=== PATIENT | male | born 1970 | race Two or more races ===

== ENCOUNTER 2020-04-30 12:53 | Inpatient (IN) | payer OTHER ==
[2020-04-30 15:07] VITALS: BMI 22.3
[2020-05-01] MEDS ORDERED: guaiFENesin 200 MG/10 ML 10 ML UNIT-DOSE CUPS PO PRN (00:16)
[2020-05-01] MEDS ORDERED: P-EPHED 60MG/TRIPROLIDI 2.5MG TABLET PO PRN (00:16)
[2020-05-01] MEDS ORDERED: NICOTINE POLACRILEX 2 MG GUM BC PRN (00:16)
[2020-05-01] MEDS ORDERED: MAG HYDROX/AL HYDROX/SIMETH 30 ML UNIT-DOSE CUP PO PRN (00:16)
[2020-05-01] MEDS ORDERED: MAGNESIUM HYDROX 2400MG/30ML ORAL SUSPENSION 30 ML CUP PO PRN (00:16)
[2020-05-01] MEDS ORDERED: IBUPROFEN 400 MG TABLET (FP) PO PRN (00:16)
[2020-05-01] MEDS ORDERED: MAGNESIUM CITRATE 300 ML BOTTLE PO PRN (00:16)
[2020-05-01] MEDS ORDERED: LOPERAMIDE HCL 2 MG CAPSULE PO PRN (00:16)
[2020-05-01] MEDS ORDERED: ACETAMINOPHEN 325 MG TABLET (FP) PO PRN (00:16)
[2020-05-01] MEDS ORDERED: TUBERCULIN PPD 5 TU/0.1ML VIAL ID ONE (06:37)
[2020-05-01] MEDS ORDERED: PT OWN MED DRAWER 7, Y5N ONE (07:50)
[2020-05-01] MEDS: NICOTINE 7 MG/24 HOURS TOPICAL PATCH TD SCH (10:40)
[2020-05-01] MEDS: PRENATAL VITAMINS W/ FOLIC ACID TABLET (FP) PO SCH (10:40)
[2020-05-01] MEDS: NICOTINE 21 MG/24 HOURS TOPICAL PATCH TD SCH (10:40)
[2020-05-01 10:51] LABS: HEMATOCRIT 38.4 % (35.4-49); HEMOGLOBIN 12.8 GM/dL (11.7-16.9); MCH 30.3 pg (25.7-33.7); MCHC 33.3 g/dl (32.0-35.9); MEAN PLT VOLUME 8.6 fl (7.5-11.1); PLATELET COUNT 237 K/MM3 (134-434); RBC 4.22 M/mm3 (4.00-5.60); RDW 14.1 % (11.9-15.9); WHITE BLOOD COUNT 5.4 K/mm3 (4.0-10.0)
[2020-05-01 11:00] LABS: ALBUMIN 3.2 g/dl (3.4-5.0); BLOOD UREA NITROGEN 18.8 mg/dL (7-18); CALCIUM 8.8 mg/dL (8.5-10.1)
[2020-05-01 11:04] LABS: BILIRUBIN,TOTAL 1.1 mg/dL (0.2-1); CREATININE 1.1 mg/dL (0.55-1.3)
[2020-05-01 11:05] LABS: TOT PROT 6.3 g/dl (6.4-8.2)
[2020-05-01 11:07] LABS: POTASSIUM 4.1 mmol/L (3.5-5.1)
[2020-05-01] MEDS ORDERED: THIAMINE HCL 100 MG TABLET (FP) PO SCH (22:00)
[2020-05-01] MEDS ORDERED: MELATONIN 5 MG TABLETS PO SCH (22:00)
[2020-05-02 07:07] VITALS: BP 102/63; PULSE 64; TEMP 97.3
[2020-05-02] MEDS: PRENATAL VITAMINS W/ FOLIC ACID TABLET (FP) PO SCH (10:45)
[2020-05-02] MEDS: NICOTINE 21 MG/24 HOURS TOPICAL PATCH TD SCH (10:45)
[2020-05-02] MEDS: NICOTINE 7 MG/24 HOURS TOPICAL PATCH TD SCH (10:45)
[2020-05-02 14:51] LABS: PH,URINE 6.5 (5.0-8.0); URINE APPEARANCE CLEAR; URINE BILIRUBIN NEGATIVE (NEGATIVE); URINE COLOR YELLOW; URINE GLUCOSE (UA) NEGATIVE (NEGATIVE); URINE KETONE NEGATIVE (NEGATIVE); URINE LEUK ESTERASE NEGATIVE (NEGATIVE); URINE NITRITE NEGATIVE (NEGATIVE); URINE PROTEIN NEGATIVE (NEGATIVE); URINE UROBILINOGEN 0.2 mg/dL (0.2-1.0)
== END 2020-05-02 11:15 | disposition left against medical advice (07) | DRG 770 ==
LOC: YASAS 12:53 → Y3E 05-01 00:26
PROVIDERS: ADMIT Allergy & Immunology; ATTEND Allergy & Immunology
PROC: HZ42ZZZ Group Counseling for Substance Abuse Treatment, Cognitive-Behavioral (ICD-10-PCS; principal; 2020-05-01)
DX: F10.20 Alcohol dependence, uncomplicated (principal); F14.20 Cocaine dependence, uncomplicated; F17.210 Nicotine dependence, cigarettes, uncomplicated; K52.89 Other specified noninfective gastroenteritis and colitis
CPT/HCPCS: 36415; 80053; 81003; 85027; 86780; 93005; 93010; C9803; U0003

== ENCOUNTER 2020-06-02 09:49 | Inpatient (IN) | payer OTHER ==
[2020-06-02 11:39] VITALS: BMI 22.8
[2020-06-02] MEDS ORDERED: ACETAMINOPHEN 325 MG TABLET (FP) PO PRN ×2 (13:34)
[2020-06-02] MEDS ORDERED: BISMUTH SUBSALICYLATE 262 MG/15 ML BTL PO PRN (13:34)
[2020-06-02] MEDS ORDERED: IBUPROFEN 400 MG TABLET (FP) PO PRN (13:34)
[2020-06-02] MEDS ORDERED: METHOCARBAMOL 500 MG TABLET PO PRN (13:34)
[2020-06-02] MEDS ORDERED: MAGNESIUM CITRATE 300 ML BOTTLE PO PRN (13:34)
[2020-06-02] MEDS ORDERED: MAGNESIUM HYDROX 2400MG/30ML ORAL SUSPENSION 30 ML CUP PO PRN (13:34)
[2020-06-02] MEDS ORDERED: ONDANSETRON *ODT* 4 MG TABLET SL PRN (13:34)
[2020-06-02] MEDS ORDERED: chlordiazePOXIDE HCL 25 MG CAPSULE PO PRN (13:34)
[2020-06-02] MEDS ORDERED: MENTHOL/PHENOL 1 EACH UD MM PRN (13:34)
[2020-06-02] MEDS ORDERED: DICYCLOMINE HCL 10 MG CAPSULE PO PRN (13:34)
[2020-06-02] MEDS ORDERED: MAG HYDROX/AL HYDROX/SIMETH 30 ML UNIT-DOSE CUP PO PRN (13:34)
[2020-06-02] MEDS ORDERED: AMMONIUM LACTATE 12% LOTION 225 GM BOTTLE TP PRN (13:44)
[2020-06-02] MEDS ORDERED: COLLOIDAL OATMEAL 1 BAR EACH TP PRN (13:46)
[2020-06-02] MEDS: PRENATAL VITAMINS W/ FOLIC ACID TABLET (FP) PO SCH (15:01)
[2020-06-02 16:26] LABS: HEMATOCRIT 39.3 % (35.4-49); HEMOGLOBIN 12.9 GM/dL (11.7-16.9); MCH 30.2 pg (25.7-33.7); MCHC 32.9 g/dl (32.0-35.9); MEAN CELL VOLUME 91.8 fl (80-96); MEAN PLT VOLUME 8.6 fl (7.5-11.1); PLATELET COUNT 232 K/MM3 (134-434); RBC 4.28 M/mm3 (4.00-5.60); WHITE BLOOD COUNT 6.2 K/mm3 (4.0-10.0)
[2020-06-02 16:30] LABS: CALCIUM 8.8 mg/dL (8.5-10.1)
[2020-06-02 16:31] LABS: ALBUMIN 3.8 g/dl (3.4-5.0); BLOOD UREA NITROGEN 14.7 mg/dL (7-18)
[2020-06-02 16:35] LABS: BILIRUBIN,TOTAL 0.9 mg/dL (0.2-1); TOT PROT 7.4 g/dl (6.4-8.2)
[2020-06-02] MEDS: chlordiazePOXIDE HCL 25 MG CAPSULE PO SCH ×2 (17:45→22:11)
[2020-06-02] MEDS: THIAMINE HCL 100 MG TABLET (FP) PO SCH (22:11)
[2020-06-02] MEDS: MELATONIN 5 MG TABLETS PO SCH (22:11)
[2020-06-02] MEDS: hydrOXYzine PAMOATE 25 MG CAPSULE (FP) PO PRN (22:13)
[2020-06-03] MEDS: chlordiazePOXIDE HCL 25 MG CAPSULE PO SCH ×4 (05:36→22:10)
[2020-06-03] MEDS: PRENATAL VITAMINS W/ FOLIC ACID TABLET (FP) PO SCH (10:09)
[2020-06-03] MEDS: THIAMINE HCL 100 MG TABLET (FP) PO SCH (22:10)
[2020-06-03] MEDS: MELATONIN 5 MG TABLETS PO SCH (22:11)
[2020-06-04] MEDS: chlordiazePOXIDE HCL 25 MG CAPSULE PO SCH ×4 (06:20→23:13)
[2020-06-04 10:06] LABS: SARS-CoV-2 NAA Not Detected (Not Detected)
[2020-06-04] MEDS: PRENATAL VITAMINS W/ FOLIC ACID TABLET (FP) PO SCH (10:13)
[2020-06-04] MEDS: THIAMINE HCL 100 MG TABLET (FP) PO SCH (23:12)
[2020-06-04] MEDS: MELATONIN 5 MG TABLETS PO SCH (23:12)
[2020-06-05] MEDS ORDERED: chlordiazePOXIDE HCL 10 MG CAPSULE PO PRN
[2020-06-05] MEDS: hydrOXYzine PAMOATE 25 MG CAPSULE (FP) PO PRN (00:21)
[2020-06-05] MEDS: chlordiazePOXIDE HCL 25 MG CAPSULE PO SCH (00:21)
[2020-06-05] MEDS: chlordiazePOXIDE HCL 10 MG CAPSULE PO SCH ×3 (07:51→17:56)
[2020-06-05] MEDS: PRENATAL VITAMINS W/ FOLIC ACID TABLET (FP) PO SCH (10:31)
[2020-06-05 14:02] VITALS: TEMP 97.7
[2020-06-05 17:55] VITALS: BP 93/58; PULSE 67
[2020-06-06] MEDS ORDERED: chlordiazePOXIDE HCL 10 MG CAPSULE PO SCH (05:00)
[2020-06-07] MEDS ORDERED: chlordiazePOXIDE HCL 10 MG CAPSULE PO ONE (05:00)
== END 2020-06-05 19:29 | disposition left against medical advice (07) | DRG 770 ==
LOC: YASAS 09:49 → Y6N 12:30 → Y3N 12:34
PROVIDERS: ADMIT Allergy & Immunology; ATTEND Allergy & Immunology
PROC: HZ2ZZZZ Detoxification Services for Substance Abuse Treatment (ICD-10-PCS; principal; 2020-06-02)
DX: F10.230 Alcohol dependence with withdrawal, uncomplicated (principal); F14.20 Cocaine dependence, uncomplicated; F17.210 Nicotine dependence, cigarettes, uncomplicated; K50.90 Crohn's disease, unspecified, without complications
CPT/HCPCS: 36415; 80053; 85027; 86780; C9803; U0003; U0005

== ENCOUNTER 2020-07-07 07:38 | Inpatient (IN) | payer OTHER ==
[2020-07-07 08:07] VITALS: BMI 22.1
[2020-07-07] MEDS ORDERED: METHOCARBAMOL 500 MG TABLET PO PRN (09:11)
[2020-07-07] MEDS ORDERED: IBUPROFEN 400 MG TABLET (FP) PO PRN (09:11)
[2020-07-07] MEDS ORDERED: ACETAMINOPHEN 325 MG TABLET (FP) PO PRN ×2 (09:11)
[2020-07-07] MEDS ORDERED: MAGNESIUM HYDROX 2400MG/30ML ORAL SUSPENSION 30 ML CUP PO PRN (09:11)
[2020-07-07] MEDS ORDERED: MAG HYDROX/AL HYDROX/SIMETH 30 ML UNIT-DOSE CUP PO PRN (09:11)
[2020-07-07] MEDS ORDERED: ONDANSETRON *ODT* 4 MG TABLET SL PRN (09:11)
[2020-07-07] MEDS ORDERED: BISMUTH SUBSALICYLATE 524 MG/30 ML PO PRN (09:11)
[2020-07-07] MEDS ORDERED: MAGNESIUM CITRATE 300 ML BOTTLE PO PRN (09:11)
[2020-07-07] MEDS ORDERED: NICOTINE POLACRILEX 2 MG GUM BUC PRN (09:11)
[2020-07-07] MEDS ORDERED: MENTHOL/PHENOL 1 EACH UD MM PRN (09:11)
[2020-07-07] MEDS ORDERED: diazePAM 5 MG TABLET PO PRN (09:11)
[2020-07-07] MEDS: hydrOXYzine PAMOATE 25 MG CAPSULE (FP) PO SCH ×4 (10:37→22:49)
[2020-07-07] MEDS: diazePAM 5 MG TABLET PO SCH ×3 (10:37→22:50)
[2020-07-07] MEDS: PRENATAL VITAMINS W/ FOLIC ACID TABLET (FP) PO SCH (10:38)
[2020-07-07] MEDS: NICOTINE 21 MG/24 HOURS TOPICAL PATCH TD SCH (10:39)
[2020-07-07 12:14] LABS: HEMATOCRIT 39.6 % (35.4-49); HEMOGLOBIN 13.5 GM/dL (11.7-16.9); MCH 30.8 pg (25.7-33.7); MEAN CELL VOLUME 90.6 fl (80-96); MEAN PLT VOLUME 8.3 fl (7.5-11.1); PLATELET COUNT 249 K/MM3 (134-434); RBC 4.37 M/mm3 (4.00-5.60); RDW 14.2 % (11.9-15.9); WHITE BLOOD COUNT 6.4 K/mm3 (4.0-10.0)
[2020-07-07 12:20] LABS: CALCIUM 8.4 mg/dL (8.5-10.1)
[2020-07-07 12:21] LABS: BLOOD UREA NITROGEN 9.4 mg/dL (7-18)
[2020-07-07 12:22] LABS: ALBUMIN 3.7 g/dl (3.4-5.0)
[2020-07-07 12:24] LABS: CREATININE 0.9 mg/dL (0.55-1.3)
[2020-07-07 12:25] LABS: BILIRUBIN,TOTAL 0.8 mg/dL (0.2-1); TOT PROT 7.1 g/dl (6.4-8.2)
[2020-07-07] MEDS: traZODone HCL 50 MG TABLET (FP) PO SCH (22:50)
[2020-07-07] MEDS: THIAMINE HCL 100 MG TABLET (FP) PO SCH (22:50)
[2020-07-07] MEDS: MELATONIN 5 MG TABLETS PO SCH (22:50)
[2020-07-08] MEDS: hydrOXYzine PAMOATE 25 MG CAPSULE (FP) PO SCH ×5 (06:56→22:19)
[2020-07-08] MEDS: diazePAM 5 MG TABLET PO SCH ×4 (06:56→22:18)
[2020-07-08] MEDS: PRENATAL VITAMINS W/ FOLIC ACID TABLET (FP) PO SCH (11:12)
[2020-07-08] MEDS: NICOTINE 21 MG/24 HOURS TOPICAL PATCH TD SCH (11:12)
[2020-07-08] MEDS: THIAMINE HCL 100 MG TABLET (FP) PO SCH (22:18)
[2020-07-08] MEDS: traZODone HCL 50 MG TABLET (FP) PO SCH (22:18)
[2020-07-08] MEDS: MELATONIN 5 MG TABLETS PO SCH (22:19)
[2020-07-09] MEDS: diazePAM 5 MG TABLET PO SCH ×3 (07:05→22:00)
[2020-07-09] MEDS: hydrOXYzine PAMOATE 25 MG CAPSULE (FP) PO SCH ×5 (07:05→22:01)
[2020-07-09] MEDS: PRENATAL VITAMINS W/ FOLIC ACID TABLET (FP) PO SCH (11:15)
[2020-07-09] MEDS: NICOTINE 21 MG/24 HOURS TOPICAL PATCH TD SCH (11:15)
[2020-07-09] MEDS: traZODone HCL 50 MG TABLET (FP) PO SCH (22:00)
[2020-07-09] MEDS: THIAMINE HCL 100 MG TABLET (FP) PO SCH (22:01)
[2020-07-09] MEDS: MELATONIN 5 MG TABLETS PO SCH (22:01)
[2020-07-10] MEDS: diazePAM 5 MG TABLET PO SCH ×2 (07:23→18:30)
[2020-07-10] MEDS: hydrOXYzine PAMOATE 25 MG CAPSULE (FP) PO SCH ×5 (07:23→22:15)
[2020-07-10] MEDS: PRENATAL VITAMINS W/ FOLIC ACID TABLET (FP) PO SCH (10:30)
[2020-07-10] MEDS: NICOTINE 21 MG/24 HOURS TOPICAL PATCH TD SCH (10:30)
[2020-07-10] MEDS: traZODone HCL 50 MG TABLET (FP) PO SCH (22:15)
[2020-07-10] MEDS: THIAMINE HCL 100 MG TABLET (FP) PO SCH (22:15)
[2020-07-10] MEDS: MELATONIN 5 MG TABLETS PO SCH (22:15)
[2020-07-11] MEDS: hydrOXYzine PAMOATE 25 MG CAPSULE (FP) PO SCH ×4 (05:42→13:18)
[2020-07-11] MEDS ORDERED: diazePAM 5 MG TABLET PO ONE (06:00)
[2020-07-11] MEDS: PRENATAL VITAMINS W/ FOLIC ACID TABLET (FP) PO SCH (10:16)
[2020-07-11] MEDS: NICOTINE 21 MG/24 HOURS TOPICAL PATCH TD SCH ×2 (10:16→11:23)
[2020-07-11 12:54] VITALS: BP 123/70; PULSE 64; TEMP 98.3
[2020-07-11 14:07] LABS: SARS-CoV-2 NAA Not Detected (Not Detected)
== END 2020-07-11 14:29 | disposition other institution (70) | DRG 774 ==
LOC: YASAS 07:38 → Y6N 08:58
PROVIDERS: ADMIT Allergy & Immunology; ATTEND Allergy & Immunology
PROC: HZ2ZZZZ Detoxification Services for Substance Abuse Treatment (ICD-10-PCS; principal; 2020-07-07)
DX: F10.230 Alcohol dependence with withdrawal, uncomplicated (principal); F14.20 Cocaine dependence, uncomplicated; F17.210 Nicotine dependence, cigarettes, uncomplicated; F19.282 Other psychoactive substance dependence with psychoactive substance-induced sleep disorder; F19.24 Other psychoactive substance dependence with psychoactive substance-induced mood disorder; F32.9 Major depressive disorder, single episode, unspecified; K51.90 Ulcerative colitis, unspecified, without complications; K58.9 Irritable bowel syndrome, unspecified; G47.00 Insomnia, unspecified; R74.01 Elevation of levels of liver transaminase levels; Z90.49 Acquired absence of other specified parts of digestive tract
CPT/HCPCS: 36415; 80053; 85027; 86780; C9803; U0003; U0005

== ENCOUNTER 2020-07-11 12:27 | Inpatient (IN) | payer OTHER ==
[~2020-07-11 12:27] MED LIST: ACETAMINOPHEN 325 MG TABLET (FP) PO PRN; IBUPROFEN 400 MG TABLET (FP) PO PRN; LOPERAMIDE HCL 2 MG CAPSULE PO PRN; MAG HYDROX/AL HYDROX/SIMETH 30 ML UNIT-DOSE CUP PO PRN; MAGNESIUM CITRATE 300 ML BOTTLE PO PRN; MAGNESIUM HYDROX 2400MG/30ML ORAL SUSPENSION 30 ML CUP PO PRN; NICOTINE POLACRILEX 4 MG GUM BUC PRN; P-EPHED 60MG/TRIPROLIDI 2.5MG TABLET PO PRN; guaiFENesin 200 MG/10 ML 10 ML UNIT-DOSE CUPS PO PRN
[2020-07-11] MEDS ORDERED: hydrOXYzine PAMOATE 25 MG CAPSULE (FP) PO SCH (14:00)
[2020-07-11 14:38] VITALS: BP 116/66; PULSE 76
[2020-07-11] MEDS ORDERED: THIAMINE HCL 100 MG TABLET (FP) PO SCH (22:00)
[2020-07-11] MEDS ORDERED: traZODone HCL 50 MG TABLET (FP) PO SCH (22:00)
[2020-07-11] MEDS ORDERED: MELATONIN 5 MG TABLETS PO SCH (22:00)
[2020-07-12] MEDS ORDERED: PRENATAL VITAMINS W/ FOLIC ACID TABLET (FP) PO SCH (10:00)
[2020-07-12] MEDS ORDERED: NICOTINE 21 MG/24 HOURS TOPICAL PATCH TD SCH (10:00)
== END 2020-07-11 15:45 | disposition home or self-care (01) | DRG 772 ==
LOC: YASAS 12:27 → Y3W 12:28
PROVIDERS: ADMIT Allergy & Immunology; ATTEND Allergy & Immunology
PROC: HZ42ZZZ Group Counseling for Substance Abuse Treatment, Cognitive-Behavioral (ICD-10-PCS; principal; 2020-07-11)
DX: F10.20 Alcohol dependence, uncomplicated (principal); F14.20 Cocaine dependence, uncomplicated; F17.210 Nicotine dependence, cigarettes, uncomplicated; K51.90 Ulcerative colitis, unspecified, without complications; K52.9 Noninfective gastroenteritis and colitis, unspecified; Z59.0 Homelessness

== ENCOUNTER 2020-07-16 09:35 | Inpatient (IN) | payer OTHER ==
[2020-07-16] MEDS ORDERED: MAGNESIUM HYDROX 2400MG/30ML ORAL SUSPENSION 30 ML CUP PO PRN (11:57)
[2020-07-16] MEDS ORDERED: MENTHOL/PHENOL 1 EACH UD MM PRN (11:57)
[2020-07-16] MEDS ORDERED: NICOTINE POLACRILEX 2 MG GUM BUC PRN (11:57)
[2020-07-16] MEDS ORDERED: MAG HYDROX/AL HYDROX/SIMETH 30 ML UNIT-DOSE CUP PO PRN (11:57)
[2020-07-16] MEDS ORDERED: ONDANSETRON *ODT* 4 MG TABLET SL PRN (11:57)
[2020-07-16] MEDS ORDERED: MAGNESIUM CITRATE 300 ML BOTTLE PO PRN (11:57)
[2020-07-16] MEDS ORDERED: IBUPROFEN 400 MG TABLET (FP) PO PRN (11:57)
[2020-07-16] MEDS ORDERED: diazePAM 5 MG TABLET PO PRN (11:57)
[2020-07-16] MEDS ORDERED: METHOCARBAMOL 500 MG TABLET PO PRN (11:57)
[2020-07-16] MEDS ORDERED: BISMUTH SUBSALICYLATE 524 MG/30 ML PO PRN (11:57)
[2020-07-16] MEDS ORDERED: ACETAMINOPHEN 325 MG TABLET (FP) PO PRN ×2 (11:57)
[2020-07-16 13:25] VITALS: BMI 21.9
[2020-07-16] MEDS: hydrOXYzine PAMOATE 25 MG CAPSULE (FP) PO SCH ×3 (13:58→22:48)
[2020-07-16] MEDS: diazePAM 5 MG TABLET PO SCH ×2 (17:59→22:48)
[2020-07-16] MEDS: THIAMINE HCL 100 MG TABLET (FP) PO SCH (22:47)
[2020-07-16] MEDS: MELATONIN 5 MG TABLETS PO SCH (22:49)
[2020-07-17] MEDS: diazePAM 5 MG TABLET PO SCH ×4 (07:00→22:03)
[2020-07-17] MEDS: hydrOXYzine PAMOATE 25 MG CAPSULE (FP) PO SCH ×5 (07:00→22:04)
[2020-07-17 10:14] LABS: CALCIUM 9.2 mg/dL (8.5-10.1)
[2020-07-17 10:16] LABS: ALBUMIN 3.5 g/dl (3.4-5.0)
[2020-07-17 10:19] LABS: BILIRUBIN,TOTAL 1.7 mg/dL (0.2-1)
[2020-07-17 10:28] LABS: HEMATOCRIT 42.6 % (35.4-49); HEMOGLOBIN 14.2 GM/dL (11.7-16.9); MCH 30.3 pg (25.7-33.7); MCHC 33.3 g/dl (32.0-35.9); MEAN CELL VOLUME 90.9 fl (80-96); MEAN PLT VOLUME 8.3 fl (7.5-11.1); PLATELET COUNT 267 K/MM3 (134-434); RBC 4.68 M/mm3 (4.00-5.60); RDW 14.1 % (11.9-15.9); WHITE BLOOD COUNT 3.4 K/mm3 (4.0-10.0)
[2020-07-17] MEDS: PRENATAL VITAMINS W/ FOLIC ACID TABLET (FP) PO SCH (10:31)
[2020-07-17] MEDS: MELATONIN 5 MG TABLETS PO SCH (22:04)
[2020-07-17] MEDS: THIAMINE HCL 100 MG TABLET (FP) PO SCH (22:04)
[2020-07-17] MEDS: traZODone HCL 100 MG TABLET (FP) PO SCH (22:04)
[2020-07-18] MEDS: hydrOXYzine PAMOATE 25 MG CAPSULE (FP) PO SCH ×5 (06:49→22:36)
[2020-07-18] MEDS: diazePAM 5 MG TABLET PO SCH ×3 (06:49→22:35)
[2020-07-18] MEDS: PRENATAL VITAMINS W/ FOLIC ACID TABLET (FP) PO SCH (11:08)
[2020-07-18] MEDS ORDERED: MASKS NR ONE (16:04)
[2020-07-18] MEDS: MELATONIN 5 MG TABLETS PO SCH (22:34)
[2020-07-18] MEDS: THIAMINE HCL 100 MG TABLET (FP) PO SCH (22:34)
[2020-07-18] MEDS: traZODone HCL 100 MG TABLET (FP) PO SCH (22:35)
[2020-07-19] MEDS: diazePAM 5 MG TABLET PO SCH ×2 (05:58→18:12)
[2020-07-19] MEDS: hydrOXYzine PAMOATE 25 MG CAPSULE (FP) PO SCH ×5 (05:58→22:34)
[2020-07-19] MEDS: PRENATAL VITAMINS W/ FOLIC ACID TABLET (FP) PO SCH (15:18)
[2020-07-19] MEDS: THIAMINE HCL 100 MG TABLET (FP) PO SCH (22:34)
[2020-07-19] MEDS: MELATONIN 5 MG TABLETS PO SCH (22:34)
[2020-07-19] MEDS: traZODone HCL 100 MG TABLET (FP) PO SCH (22:34)
[2020-07-20] MEDS ORDERED: diazePAM 5 MG TABLET PO ONE (06:00)
[2020-07-20 06:57] VITALS: TEMP 96.9
[2020-07-20] MEDS: hydrOXYzine PAMOATE 25 MG CAPSULE (FP) PO SCH (07:25)
[2020-07-20 09:12] VITALS: BP 101/60; PULSE 80
== END 2020-07-20 09:24 | disposition home or self-care (01) | DRG 774 ==
LOC: YASAS 09:35 → Y3N 12:56
PROVIDERS: ADMIT Allergy & Immunology; ATTEND Allergy & Immunology
PROC: HZ2ZZZZ Detoxification Services for Substance Abuse Treatment (ICD-10-PCS; principal; 2020-07-16)
DX: F10.230 Alcohol dependence with withdrawal, uncomplicated (principal); F14.20 Cocaine dependence, uncomplicated; F17.210 Nicotine dependence, cigarettes, uncomplicated; F19.282 Other psychoactive substance dependence with psychoactive substance-induced sleep disorder; F19.24 Other psychoactive substance dependence with psychoactive substance-induced mood disorder; G47.00 Insomnia, unspecified; K51.90 Ulcerative colitis, unspecified, without complications; K52.9 Noninfective gastroenteritis and colitis, unspecified
CPT/HCPCS: 36415; 80053; 85027; 86780; C9803; U0003; U0005

== ENCOUNTER 2020-07-25 10:12 | Inpatient (IN) | payer OTHER ==
[2020-07-25 11:49] VITALS: BMI 25.7
[2020-07-25] MEDS ORDERED: IBUPROFEN 400 MG TABLET (FP) PO PRN (11:49)
[2020-07-25] MEDS ORDERED: MAG HYDROX/AL HYDROX/SIMETH 30 ML UNIT-DOSE CUP PO PRN (11:49)
[2020-07-25] MEDS ORDERED: MENTHOL/PHENOL 1 EACH UD MM PRN (11:49)
[2020-07-25] MEDS ORDERED: ACETAMINOPHEN 325 MG TABLET (FP) PO PRN ×2 (11:49)
[2020-07-25] MEDS ORDERED: METHOCARBAMOL 500 MG TABLET PO PRN (11:49)
[2020-07-25] MEDS ORDERED: ONDANSETRON *ODT* 4 MG TABLET SL PRN (11:49)
[2020-07-25] MEDS ORDERED: NICOTINE POLACRILEX 2 MG GUM BUC PRN (11:49)
[2020-07-25] MEDS ORDERED: MAGNESIUM HYDROX 2400MG/30ML ORAL SUSPENSION 30 ML CUP PO PRN (11:49)
[2020-07-25] MEDS ORDERED: MAGNESIUM CITRATE 300 ML BOTTLE PO PRN (11:49)
[2020-07-25] MEDS ORDERED: BISMUTH SUBSALICYLATE 262 MG/15 ML BTL PO PRN (11:49)
[2020-07-25] MEDS: PRENATAL VITAMINS W/ FOLIC ACID TABLET (FP) PO SCH (12:59)
[2020-07-25] MEDS: diazePAM 5 MG TABLET PO SCH ×3 (13:00→22:40)
[2020-07-25] MEDS: NICOTINE 21 MG/24 HOURS TOPICAL PATCH TD SCH (13:01)
[2020-07-25] MEDS: hydrOXYzine PAMOATE 25 MG CAPSULE (FP) PO SCH ×3 (13:02→22:45)
[2020-07-25 15:27] LABS: ALBUMIN 4.2 g/dl (3.4-5.0); BLOOD UREA NITROGEN 11.1 mg/dL (7-18); CALCIUM 9.1 mg/dL (8.5-10.1)
[2020-07-25 15:30] LABS: CREATININE 1.2 mg/dL (0.55-1.3)
[2020-07-25 15:32] LABS: BILIRUBIN,TOTAL 1.8 mg/dL (0.2-1); TOT PROT 7.8 g/dl (6.4-8.2)
[2020-07-25 15:38] LABS: HEMATOCRIT 41.1 % (35.4-49); HEMOGLOBIN 13.7 GM/dL (11.7-16.9); MCH 29.7 pg (25.7-33.7); MCHC 33.3 g/dl (32.0-35.9); MEAN CELL VOLUME 89.2 fl (80-96); MEAN PLT VOLUME 8.3 fl (7.5-11.1); PLATELET COUNT 261 10^3/uL (134-434); RBC 4.61 M/mm3 (4.00-5.60); RDW 13.8 % (11.9-15.9); WHITE BLOOD COUNT 7.2 K/mm3 (4.0-10.0)
[2020-07-25] MEDS: MELATONIN 5 MG TABLETS PO SCH (22:40)
[2020-07-25] MEDS: traZODone HCL 100 MG TABLET (FP) PO SCH (22:40)
[2020-07-25] MEDS: THIAMINE HCL 100 MG TABLET (FP) PO SCH (22:40)
[2020-07-26] MEDS: hydrOXYzine PAMOATE 25 MG CAPSULE (FP) PO SCH ×5 (06:25→22:45)
[2020-07-26] MEDS: diazePAM 5 MG TABLET PO SCH ×4 (06:25→22:46)
[2020-07-26] MEDS: PRENATAL VITAMINS W/ FOLIC ACID TABLET (FP) PO SCH (11:01)
[2020-07-26] MEDS: NICOTINE 21 MG/24 HOURS TOPICAL PATCH TD SCH (11:19)
[2020-07-26] MEDS: diazePAM 5 MG TABLET PO PRN (14:12)
[2020-07-26] MEDS: THIAMINE HCL 100 MG TABLET (FP) PO SCH (22:45)
[2020-07-26] MEDS: MELATONIN 5 MG TABLETS PO SCH (22:46)
[2020-07-26] MEDS: traZODone HCL 100 MG TABLET (FP) PO SCH (22:46)
[2020-07-27] MEDS: hydrOXYzine PAMOATE 25 MG CAPSULE (FP) PO SCH ×4 (06:58→17:55)
[2020-07-27] MEDS: diazePAM 5 MG TABLET PO SCH ×2 (06:58→13:31)
[2020-07-27] MEDS: NICOTINE 21 MG/24 HOURS TOPICAL PATCH TD SCH (11:01)
[2020-07-27] MEDS: PRENATAL VITAMINS W/ FOLIC ACID TABLET (FP) PO SCH (11:01)
[2020-07-27 17:50] VITALS: BP 108/70; PULSE 69; TEMP 97.7
[2020-07-27] MEDS: diazePAM 5 MG TABLET PO PRN (17:55)
[2020-07-28] MEDS ORDERED: diazePAM 5 MG TABLET PO SCH (06:00)
[2020-07-28 10:09] LABS: SARS-CoV-2 NAA Not Detected (Not Detected)
[2020-07-29] MEDS ORDERED: diazePAM 5 MG TABLET PO ONE (06:00)
== END 2020-07-27 18:50 | disposition left against medical advice (07) | DRG 770 ==
LOC: YASAS 10:12 → Y6N 12:16
PROVIDERS: ADMIT Allergy & Immunology; ATTEND Allergy & Immunology
PROC: HZ2ZZZZ Detoxification Services for Substance Abuse Treatment (ICD-10-PCS; principal; 2020-07-25)
DX: F10.230 Alcohol dependence with withdrawal, uncomplicated (principal); F14.20 Cocaine dependence, uncomplicated; F17.210 Nicotine dependence, cigarettes, uncomplicated; F41.9 Anxiety disorder, unspecified; F19.282 Other psychoactive substance dependence with psychoactive substance-induced sleep disorder; F19.24 Other psychoactive substance dependence with psychoactive substance-induced mood disorder; G47.00 Insomnia, unspecified; K51.90 Ulcerative colitis, unspecified, without complications; Z20.822 Contact with and (suspected) exposure to COVID-19
CPT/HCPCS: 36415; 80053; 85027; 86780; C9803; U0003; U0005

== ENCOUNTER 2020-09-18 22:07 | Inpatient (IN) | payer OTHER ==
[2020-09-18 22:43] VITALS: BMI 25.8
[2020-09-18] MEDS ORDERED: ACETAMINOPHEN 325 MG TABLET (FP) PO PRN ×2 (23:01)
[2020-09-18] MEDS ORDERED: MAG HYDROX/AL HYDROX/SIMETH 30 ML UNIT-DOSE CUP PO PRN (23:01)
[2020-09-18] MEDS ORDERED: IBUPROFEN 400 MG TABLET (FP) PO PRN (23:01)
[2020-09-18] MEDS ORDERED: MAGNESIUM CITRATE 300 ML BOTTLE PO PRN (23:01)
[2020-09-18] MEDS ORDERED: MENTHOL/PHENOL 1 EACH UD MM PRN (23:01)
[2020-09-18] MEDS ORDERED: hydrOXYzine PAMOATE 25 MG CAPSULE (FP) PO PRN (23:01)
[2020-09-18] MEDS ORDERED: MAGNESIUM HYDROX 2400MG/30ML ORAL SUSPENSION 30 ML CUP PO PRN (23:01)
[2020-09-18] MEDS ORDERED: BISMUTH SUBSALICYLATE 524 MG/30 ML PO PRN (23:01)
[2020-09-19] MEDS: diazePAM 5 MG TABLET PO PRN (02:42)
[2020-09-19] MEDS: METHOCARBAMOL 500 MG TABLET PO PRN ×2 (02:44→21:23)
[2020-09-19] MEDS: diazePAM 5 MG TABLET PO SCH ×5 (02:45→22:56)
[2020-09-19] MEDS: PRENATAL VITAMINS W/ FOLIC ACID TABLET (FP) PO SCH (10:51)
[2020-09-19 10:55] LABS: HEMATOCRIT 39.7 % (35.4-49); HEMOGLOBIN 13.3 GM/dL (11.7-16.9); MCH 30.5 pg (25.7-33.7); MCHC 33.6 g/dl (32.0-35.9); MEAN CELL VOLUME 90.8 fl (80-96); MEAN PLT VOLUME 8.2 fl (7.5-11.1); PLATELET COUNT 225 10^3/uL (134-434); RBC 4.37 M/mm3 (4.00-5.60); RDW 13.8 % (11.9-15.9); WHITE BLOOD COUNT 3.6 K/mm3 (4.0-10.0)
[2020-09-19 11:07] LABS: ALBUMIN 3.2 g/dl (3.4-5.0); BLOOD UREA NITROGEN 10.4 mg/dL (7-18); CALCIUM 8.4 mg/dL (8.5-10.1)
[2020-09-19 11:13] LABS: BILIRUBIN,TOTAL 0.9 mg/dL (0.2-1); TOT PROT 6.1 g/dl (6.4-8.2)
[2020-09-19] MEDS: MELATONIN 5 MG TABLETS PO SCH (22:56)
[2020-09-19] MEDS: THIAMINE HCL 100 MG TABLET (FP) PO SCH (22:56)
[2020-09-20] MEDS: diazePAM 5 MG TABLET PO SCH ×3 (06:29→22:42)
[2020-09-20] MEDS: PRENATAL VITAMINS W/ FOLIC ACID TABLET (FP) PO SCH (11:50)
[2020-09-20] MEDS: THIAMINE HCL 100 MG TABLET (FP) PO SCH (22:42)
[2020-09-20] MEDS: MELATONIN 5 MG TABLETS PO SCH (22:42)
[2020-09-21] MEDS: diazePAM 5 MG TABLET PO SCH ×2 (06:03→18:18)
[2020-09-21] MEDS: ONDANSETRON *ODT* 4 MG TABLET SL PRN ×2 (06:05→12:29)
[2020-09-21] MEDS: PRENATAL VITAMINS W/ FOLIC ACID TABLET (FP) PO SCH (10:50)
[2020-09-21] MEDS: diazePAM 5 MG TABLET PO PRN (13:44)
[2020-09-21] MEDS ORDERED: traZODone HCL 50 MG TABLET (FP) PO ONE (21:00)
[2020-09-21] MEDS ORDERED: MELATONIN 5 MG TABLETS PO SCH (21:03)
[2020-09-21] MEDS: THIAMINE HCL 100 MG TABLET (FP) PO SCH (22:29)
[2020-09-22] MEDS ORDERED: diazePAM 5 MG TABLET PO ONE (06:00)
[2020-09-22 09:29] VITALS: BP 90/59; PULSE 63; TEMP 96.8
[2020-09-22] MEDS: PRENATAL VITAMINS W/ FOLIC ACID TABLET (FP) PO SCH (10:18)
== END 2020-09-22 11:45 | disposition home or self-care (01) | DRG 774 ==
LOC: YASAS 22:07 → Y3N 23:46
PROVIDERS: ADMIT Allergy & Immunology; ATTEND Allergy & Immunology
PROC: HZ2ZZZZ Detoxification Services for Substance Abuse Treatment (ICD-10-PCS; principal; 2020-09-18)
DX: F10.230 Alcohol dependence with withdrawal, uncomplicated (principal); F14.20 Cocaine dependence, uncomplicated; F17.210 Nicotine dependence, cigarettes, uncomplicated; G47.00 Insomnia, unspecified; Z87.19 Personal history of other diseases of the digestive system
CPT/HCPCS: 36415; 80053; 85027; 86780; C9803; Q0162; U0003; U0005

== ENCOUNTER 2020-09-30 12:29 | Inpatient (IN) | payer OTHER ==
[2020-09-30] MEDS ORDERED: BISMUTH SUBSALICYLATE 524 MG/30 ML PO PRN (19:04)
[2020-09-30] MEDS ORDERED: METHOCARBAMOL 500 MG TABLET PO PRN (19:04)
[2020-09-30] MEDS ORDERED: NICOTINE 10 MG CARTRIDGE (INHALER) IH PRN (19:04)
[2020-09-30] MEDS ORDERED: ONDANSETRON *ODT* 4 MG TABLET SL PRN (19:04)
[2020-09-30] MEDS ORDERED: MAGNESIUM CITRATE 300 ML BOTTLE PO PRN (19:04)
[2020-09-30] MEDS ORDERED: MAG HYDROX/AL HYDROX/SIMETH 30 ML UNIT-DOSE CUP PO PRN (19:04)
[2020-09-30] MEDS ORDERED: diazePAM 5 MG TABLET PO PRN (19:04)
[2020-09-30] MEDS ORDERED: MENTHOL/PHENOL 1 EACH UD MM PRN (19:04)
[2020-09-30] MEDS ORDERED: MAGNESIUM HYDROX 2400MG/30ML ORAL SUSPENSION 30 ML CUP PO PRN (19:04)
[2020-09-30] MEDS ORDERED: IBUPROFEN 400 MG TABLET (FP) PO PRN (19:04)
[2020-09-30] MEDS ORDERED: ACETAMINOPHEN 325 MG TABLET (FP) PO PRN ×2 (19:04)
[2020-10-01] MEDS ORDERED: diazePAM 5 MG TABLET ONE ×3 (01:01→11:13)
[2020-10-01] MEDS ORDERED: hydrOXYzine PAMOATE 25 MG CAPSULE (FP) PO ONE ×3 (01:01→11:13)
[2020-10-01] MEDS ORDERED: IBUPROFEN 400 MG TABLET (FP) PO ONE (01:06)
[2020-10-01] MEDS: MELATONIN 5 MG TABLETS PO SCH ×2 (01:13→22:51)
[2020-10-01] MEDS: diazePAM 5 MG TABLET PO SCH ×5 (01:14→22:50)
[2020-10-01] MEDS: THIAMINE HCL 100 MG TABLET (FP) PO SCH ×2 (01:14→22:52)
[2020-10-01] MEDS: hydrOXYzine PAMOATE 25 MG CAPSULE (FP) PO SCH ×6 (01:14→22:52)
[2020-10-01 03:35] VITALS: BMI 20.7
[2020-10-01] MEDS: PRENATAL VITAMINS W/ FOLIC ACID TABLET (FP) PO SCH (11:12)
[2020-10-02] MEDS: diazePAM 5 MG TABLET PO SCH ×3 (06:38→22:40)
[2020-10-02] MEDS: hydrOXYzine PAMOATE 25 MG CAPSULE (FP) PO SCH (06:38)
[2020-10-02] MEDS ORDERED: hydrOXYzine PAMOATE 25 MG CAPSULE (FP) PO PRN (09:10)
[2020-10-02] MEDS: PRENATAL VITAMINS W/ FOLIC ACID TABLET (FP) PO SCH (12:20)
[2020-10-02] MEDS: THIAMINE HCL 100 MG TABLET (FP) PO SCH (22:40)
[2020-10-02] MEDS: MELATONIN 5 MG TABLETS PO SCH (22:41)
[2020-10-03] MEDS ORDERED: diazePAM 5 MG TABLET PO SCH (06:00)
[2020-10-03 09:44] VITALS: TEMP 97.1
[2020-10-03] MEDS: PRENATAL VITAMINS W/ FOLIC ACID TABLET (FP) PO SCH (10:06)
[2020-10-03 13:19] VITALS: BP 114/64; PULSE 61
[2020-10-04] MEDS ORDERED: diazePAM 5 MG TABLET PO ONE (06:00)
== END 2020-10-03 13:51 | disposition left against medical advice (07) | DRG 770 ==
LOC: YASAS 12:29 → Y3N 10-01 12:31
PROVIDERS: ADMIT Allergy & Immunology; ATTEND Allergy & Immunology
PROC: HZ2ZZZZ Detoxification Services for Substance Abuse Treatment (ICD-10-PCS; principal; 2020-10-01)
DX: F10.230 Alcohol dependence with withdrawal, uncomplicated (principal); F14.20 Cocaine dependence, uncomplicated; F12.10 Cannabis abuse, uncomplicated; F17.210 Nicotine dependence, cigarettes, uncomplicated; F19.282 Other psychoactive substance dependence with psychoactive substance-induced sleep disorder; F19.24 Other psychoactive substance dependence with psychoactive substance-induced mood disorder; Z87.19 Personal history of other diseases of the digestive system
CPT/HCPCS: C9803; U0003; U0005